=== PATIENT | male | born 1970 | race Hispanic/Latino ===

== ENCOUNTER 2019-05-19 21:04 | Emergency (ER) | payer OTHER | END 2019-05-19 22:14 | disposition home or self-care (01) | LOC: EDH 21:04 | DX: M25.561 Pain in right knee (principal); Z90.49 Acquired absence of other specified parts of digestive tract | CPT/HCPCS: 73562 ==

== ENCOUNTER → 2021-05-06 | Outpatient (CLI) | payer BC ==
[2021-05-06 09:26] LABS: CREATININE 1.1 mg/dL (0.5-1.5)
== END | disposition home or self-care (01) ==
LOC: LAB 08:08
PROVIDERS: ATTEND Urology
DX: R31.0 Gross hematuria (principal)
CPT/HCPCS: 36415; 82565; 84520